=== PATIENT | male | born 1970 | race Caucasian/White ===

== ENCOUNTER 2017-02-18 09:59 | Day surgery (SDC) | payer BC ==
--- NOTE | ~2017-02-18 | EGD ---
EGD REPORT [facility] [address] [address] NAME: DARIUS SHAVER : 74 STATUS : REG [facility] [place] PAT#: [id number] AGE: 47 ADM/REG DATE : 02/18/17 MR#: [id number] REPORT SERV DATE: 02/18/17 DICTATED BY: MARCELLE ROY DATE: 02/18/17 REPORT STATUS : Draft [facility] BY: [facility] DATE: 02/18/17 Endoscopy Center Patient Name: Darius Shaver Date of : 1970 Attending MD: HERMINIO ROY MD Procedure Date No Time: 02/18/2017 Procedure: Colonoscopy Indications: Chronic diarrhea, Clinically significant diarrhea of unexplained origin Referring MD: BRADY OSPINA Medicines: See the Anesthesia note for documentation of the administered medications Complications: No immediate complications. Estimated blood loss: None. Procedure: Pre-Anesthesia Assessment: - ASA Grade Assessment: II - A patient with mild systemic disease. - Prior to the procedure, a History and Physical was performed, and patient medications and allergies were reviewed. The patient's tolerance of previous anesthesia was also reviewed. The risks and benefits of the procedure and the sedation options and risks were discussed with the patient. All questions were answered, and informed consent was obtained. Prior Anticoagulants: The patient has taken no previous anticoagulant or antiplatelet agents. After reviewing the risks and benefits, the patient was deemed in satisfactory condition to undergo the procedure. After I obtained informed consent, the scope was passed under direct vision. Throughout the procedure, the patient's blood pressure, pulse, and oxygen saturations were monitored continuously. The PCF [id number] was introduced through the anus and advanced to the terminal ileum. The ileocecal valve, appendiceal orifice, terminal ileum and rectum were photographed. The entire colon was examined. The colonoscopy was performed without difficulty. The patient tolerated the procedure well. The quality of the bowel preparation was adequate. Findings: The perianal and digital rectal examinations were normal. The terminal ileum appeared normal. Normal mucosa was found in the entire colon. Biopsies were taken with a cold forceps for histology. Impression: - The examined portion of the ileum was normal. EGD REPORT [address] [address] NAME: DARIUS SHAVER : [birth year] STATUS : REG [facility] [place] PAT#: [id number] AGE: 47 ADM/REG DATE : 02/18/17 MR#: [id number] REPORT SERV DATE: 02/18/17 DICTATED BY: MARCELLE ROY DATE: 02/18/17 REPORT STATUS : Draft TRANSCRIBED BY: [employer] DATE: 02/18/17 - Normal mucosa in the entire examined colon. Biopsied. Recommendation: - Patient has a contact number available for emergencies. The signs and symptoms of potential delayed complications were discussed with the patient. Return to normal activities tomorrow. Written discharge instructions were provided to the patient. - Regular diet. - Discharge patient to home. - Continue present medications. - Await pathology results. - Repeat colonoscopy in 10 years for surveillance. - Return to my office in 6 weeks. Procedure Code(s): --- Professional --- 92477, Colonoscopy, flexible, proximal to splenic flexure; with biopsy, single or multiple Diagnosis Code(s): --- Professional --- K52.9, Noninfective gastroenteritis and colitis, unspecified R19.7, Diarrhea, unspecified CPT copyright 2013 [employer]. All rights reserved. The codes documented in this report are preliminary and upon capsule maker review may be revised to meet current compliance requirements. HERMINIO ROY MD 02/18/2017 12:01 PM This report has been signed electronically. Number of Addenda: 0 Note Initiated On: 02/18/2017 11:44 AM Scope Withdrawal Time 0 hours 8 minutes 19 seconds [id number] [id number]
--- NOTE | ~2017-02-18 | EGD ---
EGD REPORT [facility] [address] [address] NAME: DARIUS SHAVER : 74 STATUS : REG [facility] [place] PAT#: [id number] AGE: 47 ADM/REG DATE : 02/18/17 MR#: [id number] REPORT SERV DATE: 02/18/17 DICTATED BY: MARCELLE ROY DATE: 02/18/17 REPORT STATUS : Draft [facility]IBED BY: [facility] DATE: 02/18/17 Endoscopy Center Patient Name: Darius Shaver Date of : 1970 Attending MD: HERMINIO ROY MD Procedure Date No Time: 02/18/2017 Procedure: Upper GI endoscopy Indications: Dyspepsia, Abdominal bloating Referring MD: BRADY OSPINA Medicines: See the Anesthesia note for documentation of the administered medications Complications: No immediate complications. Procedure: Pre-Anesthesia Assessment: - ASA Grade Assessment: II - A patient with mild systemic disease. - Prior to the procedure, a History and Physical was performed, and patient medications and allergies were reviewed. The patient's tolerance of previous anesthesia was also reviewed. The risks and benefits of the procedure and the sedation options and risks were discussed with the patient. All questions were answered, and informed consent was obtained. Prior Anticoagulants: The patient has taken no previous anticoagulant or antiplatelet agents. After reviewing the risks and benefits, the patient was deemed in satisfactory condition to undergo the procedure. After obtaining informed consent, the endoscope was passed under direct vision. Throughout the procedure, the patient's blood pressure, pulse, and oxygen saturations were monitored continuously. The GIF H190 [id number] was introduced through the mouth, and advanced to the third part of duodenum. The upper GI endoscopy was accomplished without difficulty. The patient tolerated the procedure well. Findings: The examined duodenum was normal. Biopsies were taken with a cold forceps for histology. The entire examined stomach was normal. Biopsies were taken with a cold forceps for histology. The examined esophagus was normal. Impression: - Normal examined duodenum. - Normal stomach. Biopsied. - Normal esophagus. EGD REPORT [address] [address] NAME: DARIUS SHAVER : 74 STATUS : REG [facility]#: [id number] AGE: 47 ADM/REG DATE : 02/18/17 MR#: [id number] REPORT SERV DATE: 02/18/17 DICTATED BY: MARCELLE ROY DATE: 02/18/17 REPORT STATUS : Draft TRANSCRIBED BY: [employer] DATE: 02/18/17 Recommendation: - Patient has a contact number available for emergencies. The signs and symptoms of potential delayed complications were discussed with the patient. Return to normal activities tomorrow. Written discharge instructions were provided to the patient. - Regular diet. - Discharge patient to home. - Continue present medications. - Await pathology results. Procedure Code(s): --- Professional --- 06658, Esophagogastroduodenoscopy, flexible, transoral; with biopsy, single or multiple Diagnosis Code(s): --- Professional --- K30, Functional dyspepsia R14.0, Abdominal distension (gaseous) CPT copyright 2013 [employer]. All rights reserved. The codes documented in this report are preliminary and upon program evaluator review may be revised to meet current compliance requirements. HERMINIO ROY MD 02/18/2017 11:47 AM This report has been signed electronically. Number of Addenda: 0 Note Initiated On: 02/18/2017 11:29 AM Scope Withdrawal Time 0 hours 0 minutes 0 seconds [id number] [place] [id number]
[~2017-02-18 09:59] MED LIST: ADVAIR250 INH; ALLERY SHOTS; AMB10 PO; CLARIT10 PO; COZ50 PO; IBU-200200 MG PO; MULTIVITAMI1 PO; NEXIUM20 M1 PO; PEP20 PO; PROAIR HFA INH; SINGULAIR1 PO; SUPER B COMP PO; TESS PO; VITAMIN D31000 UNIT PO; ZEGERID1 CAP PO; ZOLOFT25 MG PO; ZYRTEC ALLGY10 MG PO
== END 2017-02-18 23:59 | disposition home or self-care (01) ==
LOC: DMU 09:59
PROVIDERS: Internal Medicine Gastroenterology
PROC: 0DB68ZX Excision of Stomach, Via Natural or Artificial Opening Endoscopic, Diagnostic (ICD-10-PCS; 2017-02-18)
PROC: 0DBE8ZZ Excision of Large Intestine, Via Natural or Artificial Opening Endoscopic (ICD-10-PCS; principal; 2017-02-18 12:00)
PROC: 0DB98ZX Excision of Duodenum, Via Natural or Artificial Opening Endoscopic, Diagnostic (ICD-10-PCS; 2017-02-18 12:00)
DX: K29.50 Unspecified chronic gastritis without bleeding (principal); K52.9 Noninfective gastroenteritis and colitis, unspecified; K31.89 Other diseases of stomach and duodenum; K21.9 Gastro-esophageal reflux disease without esophagitis; F41.9 Anxiety disorder, unspecified; I10 Essential (primary) hypertension; J40 Bronchitis, not specified as acute or chronic; J45.909 Unspecified asthma, uncomplicated; Z88.5 Allergy status to narcotic agent; Z87.891 Personal history of nicotine dependence
CPT/HCPCS: 88305